=== PATIENT | female | born 2000 | race Caucasian/White ===

== ENCOUNTER 2020-05-22 17:17 | Emergency (ER) | payer BC ==
[~2020-05-22] VITALS: Ht 167.6 cm; Wt 95.3 kg
[~2020-05-22 17:17] MED LIST: ADVIL; PROVENTAL INHALER
[2020-05-22 17:25] VITALS: BP_SYST 127
[2020-05-22 17:52] LABS: BILIRUBIN,URINE NEGATIVE (NEGATIVE); BLOOD, URINE 2+ (NEGATIVE); CLARITY/URINE CLEAR (CLEAR); COLOR,URINE YELLOW (YELLOW); GLUCOSE,URINE NEGATIVE (NEGATIVE); KETONES,URINE NEGATIVE (NEGATIVE); LEUKOCYTE ESTERASE ,URINE NEGATIVE (NEGATIVE); NITRITE, URINE NEGATIVE (NEGATIVE); PROTEIN URINE NEGATIVE (NEGATIVE); UROBILINOGEN,URINE 0.2 (0.2-1.0)
[2020-05-22 18:02] LABS: BACTERIA,URINE FEW /HPF (None Seen); WBC,URINE 0-3 /HPF (0-3)
[2020-05-22] MEDS ORDERED: levoFLOXacin 500 MG TABLET PO ONE (18:15)
[2020-05-22] MEDS ORDERED: HYDROcodone/ACETAMIN 7.5-325 MG TAB PO ONE (18:15)
[2020-05-22] MEDS ORDERED: SULFAMETHOXAZOLE/TRIMETHOPR DS 1 TABLET PO ONE (18:15)
[2020-05-22 18:18] VITALS: BP_SYST 127
== END 2020-05-22 18:19 | disposition home or self-care (01) ==
LOC: SED 17:17
DX: N39.0 Urinary tract infection, site not specified (principal); J45.909 Unspecified asthma, uncomplicated
CPT/HCPCS: 81000-TC; 81025; 99284